=== PATIENT | female | born 1980 | race Caucasian/White ===

== ENCOUNTER 2022-11-15 17:25 | Emergency (ER) | payer MEDICAID ==
[~2022-11-15] VITALS: Ht 172.7 cm; Wt 49.0 kg
[~2022-11-15 17:25] MED LIST: OLAN10TA
[2022-11-15 17:28] VITALS: BP 125/86
--- NOTE | 2022-11-15 19:22 | NUR ---
PT CALLED BY DR. JACINTO WITH NO ANSWER. WILL REATTEMPT LATER.
--- NOTE | 2022-11-15 20:22 | NUR ---
PT CALLED IN LOBBY AND OUTSIDE x2 WITH NO ANSWER. PT LWBS
[2022-11-16] MEDS ORDERED: NITR100C7 PO (09:16)
== END 2022-11-15 20:22 | disposition left against medical advice (07) ==
LOC: MED 17:25
DX: N93.9 Abnormal uterine and vaginal bleeding, unspecified (principal); Z53.21 Procedure and treatment not carried out due to patient leaving prior to being seen by health care provider

== ENCOUNTER 2022-11-16 02:28 | Emergency (ER) | payer MEDICAID ==
[~2022-11-16] VITALS: Ht 170.2 cm; Wt 53.7 kg
[2022-11-16 02:35] VITALS: BP 133/57
--- NOTE | 2022-11-16 02:38 | NUR ---
TO LOBBY A/W BED AMBULATORY
--- NOTE | 2022-11-16 03:45 | NUR ---
PATIENT CALL TO BE SEEN BY ERMD, NO RESPONSE. PATIENT LEFT WITHOUT BEING SEEN BY DR. DIAZ. NO FURTHER CARE PROVIDED FOR PATIENT.
--- NOTE | 2022-11-16 03:50 | NUR ---
CALLED FOR THE SECOND TIME, NO RESPONSE
--- NOTE | 2022-11-16 03:55 | NUR ---
CALLED FOR THE THIRD TIME, NO RESPONSE
[2022-11-16] MEDS ORDERED: NITR100C7 PO (09:16)
== END 2022-11-16 03:45 | disposition left against medical advice (07) ==
LOC: MED 02:28
DX: R58 Hemorrhage, not elsewhere classified (principal); Z53.21 Procedure and treatment not carried out due to patient leaving prior to being seen by health care provider

== ENCOUNTER 2022-11-16 08:29 | Emergency (ER) | payer MEDICAID ==
[~2022-11-16] VITALS: Ht 170.2 cm; Wt 49.0 kg
[2022-11-16 08:37] VITALS: BP 113/80
[2022-11-16 09:07] LABS: APPEARANCE,URINE CLEAR (CLEAR); BILIRUBIN,URINE NEGATIVE (NEGATIVE); BLOOD, URINE LARGE (NEGATIVE); COLOR,URINE YELLOW (YELLOW); NITRITE, URINE POSITIVE (NEGATIVE); UGLUCOSE NEGATIVE (NEGATIVE)
[2022-11-16 09:10] LABS: LEUKOCYTE ESTERASE ,URINE 3+ (NEGATIVE)
[2022-11-16] MEDS ORDERED: NITR100C7 PO (09:16)
--- NOTE | 2022-11-16 09:16 | NUR ---
urine collected and sent to lab
[2022-11-16 09:26] LABS: RBC,URINE >20 (MANY) /HPF (0-5)
--- NOTE | 2022-11-16 09:51 | NUR ---
Pt bibs for a complaint of vaginal bleeding for 2 days. Checked in ED yesterday here at [facility] but eloped with the same complaint. Upon assessment pt admitted to MD and myself that pt is not here for pain or bleeding but rehab information instead. I left room to attend another pt while MD was still speaking with pt. When I returned for DC, pt was gone.
--- NOTE | 2022-11-16 09:52 | NUR ---
MD aware of pt leaving without dc packet.
== END 2022-11-16 09:53 | disposition home or self-care (01) ==
LOC: MED 08:29
DX: N39.0 Urinary tract infection, site not specified (principal); F19.10 Other psychoactive substance abuse, uncomplicated; Z88.0 Allergy status to penicillin
CPT/HCPCS: 81001; 81025; 87086; 99283